=== PATIENT | male | born 1950 | race Caucasian/White ===

== ENCOUNTER 2019-03-13 09:35 | Emergency (ER) | payer OTHER ==
[~2019-03-13] VITALS: Ht 185.4 cm; Wt 74.8 kg
[~2019-03-13 09:35] MED LIST: ASPIR 8181 MG; DICLOFENAC SODI50 MG PO; ENALAPRIL MALE2.5 MG; ORPH100T PO; SIMVASTATIN5 MG; ZOLOFT25 MG
[2019-03-13] MEDS ORDERED: PROTONIX40 MG PO (09:53)
[2019-03-13] MEDS ORDERED: TENAZEPAM PO (09:53)
[2019-03-13] MEDS ORDERED: ZANTAC150 M3 PO (09:53)
[2019-03-13] MEDS ORDERED: CARAFATE1 GM PO (09:54)
[2019-03-13] MEDS ORDERED: CLONAZEPAM2 MG PO (14:24)
== END 2019-03-13 15:06 | disposition home or self-care (01) ==
LOC: ER 09:35
DX: M54.5 Low back pain (principal)

== ENCOUNTER 2020-12-04 07:18 | Outpatient (CLI) | payer OTHER ==
[~2020-12-04 07:18] MED LIST changes: +CARAFATE1 GM PO; +CLONAZEPAM2 MG PO; +PROTONIX40 MG PO; +TENAZEPAM PO; +ZANTAC150 M3 PO
== END 2020-12-04 07:22 | disposition home or self-care (01) ==
LOC: TOM 07:18
PROVIDERS: ATTEND Otolaryngology Otology & Neurotology
DX: N20.0 Calculus of kidney (principal); K57.92 Diverticulitis of intestine, part unspecified, without perforation or abscess without bleeding; C18.8 Malignant neoplasm of overlapping sites of colon; K80.80 Other cholelithiasis without obstruction; I70.8 Atherosclerosis of other arteries

== ENCOUNTER 2022-03-27 08:01 | Outpatient (CLI) | payer OTHER | END 2022-03-27 08:08 | disposition home or self-care (01) | LOC: LAB 08:01 | PROVIDERS: ATTEND Internal Medicine Hematology & Oncology | DX: D58.0 Hereditary spherocytosis (principal); R79.9 Abnormal finding of blood chemistry, unspecified; I10 Essential (primary) hypertension; R74.02 Elevation of levels of lactic acid dehydrogenase [LDH]; K76.89 Other specified diseases of liver; D51.1 Vitamin B12 deficiency anemia due to selective vitamin B12 malabsorption with proteinuria; D51.0 Vitamin B12 deficiency anemia due to intrinsic factor deficiency; B20 Human immunodeficiency virus [HIV] disease; B17.9 Acute viral hepatitis, unspecified; Z11.59 Encounter for screening for other viral diseases; E78.2 Mixed hyperlipidemia; E03.8 Other specified hypothyroidism; E06.3 Autoimmune thyroiditis; R97.0 Elevated carcinoembryonic antigen [CEA]; R97.8 Other abnormal tumor markers; R97.20 Elevated prostate specific antigen [PSA]; C43.51 Malignant melanoma of anal skin; F33.9 Major depressive disorder, recurrent, unspecified ==

== ENCOUNTER 2022-10-21 02:08 | Emergency (ER) | payer OTHER ==
[~2022-10-21] VITALS: Ht 185.4 cm; Wt 80.7 kg
== END 2022-10-21 12:41 | disposition home or self-care (01) ==
LOC: ER 02:08
DX: K52.9 Noninfective gastroenteritis and colitis, unspecified (principal); Z88.6 Allergy status to analgesic agent; K57.90 Diverticulosis of intestine, part unspecified, without perforation or abscess without bleeding; K80.20 Calculus of gallbladder without cholecystitis without obstruction; N20.0 Calculus of kidney

== ENCOUNTER 2022-10-25 19:41 | Emergency (ER) | payer OTHER ==
[~2022-10-25] VITALS: Ht 185.4 cm; Wt 80.7 kg
== END 2022-10-26 08:02 | disposition left against medical advice (07) ==
LOC: ER 19:41
DX: R10.32 Left lower quadrant pain (principal); Z85.038 Personal history of other malignant neoplasm of large intestine; I10 Essential (primary) hypertension; Z88.6 Allergy status to analgesic agent; R11.10 Vomiting, unspecified